=== PATIENT | female | born 1985 | race Caucasian/White ===

== ENCOUNTER 2019-09-24 17:51 | Emergency (ER) | payer OTHER ==
[2019-09-24 18:19] VITALS: BP 109/67
--- NOTE | 2019-09-24 18:34 | UC ---
FLU HPI - HPI Summary HPI Summary: 34-year-old female with flulike symptoms for 5 days. Today she has sinus congestion, postnasal drainage, tight congested cough with mild shortness of breath. She continues to have fever. - History of Current Complaint Chief Complaint: UCGeneralIllness Stated Complaint: FLU LIKE SYMPTOMS Time Seen by Provider: 09/24/19 18:04 Hx Obtained From: Patient Hx Last Menstrual Period: 08/28/19 ?: No Onset/Duration: Gradual Onset Severity Currently: Mild Severity Initially: Moderate Pain Intensity: 6 Associated Signs & Symptoms: Positive: Fever, Myalgia, Cough, Nasal Congestion, Headache - Allergy/Home Medications Allergies/Adverse Reactions: Allergies Allergy/AdvReac Type Severity Reaction Status Date / Time No Known Allergies Allergy Verified 09/24/19 18:12 Home Medications: Home Medications Amoxicillin 875 mg PO ONCE 09/24/19 [History Confirmed 09/24/19] Ibuprofen TAB* [Advil TAB*] 600 mg PO ONCE 09/24/19 [History Confirmed 09/24/19] PMH/Surg Hx/FS Hx/Imm Hx Previously Healthy: Yes - Surgical History Surgical History: Yes Surgery Procedure, Year, and Place: pilonidal cyst removal 2007. breast augmentation - Family History Known Family History: Positive: Non-Contributory - Social History Occupation: Employed Full-time Lives: With Family Alcohol Use: None Substance Use Type: None Smoking Status (MU): Never Smoked Tobacco Review of Systems All Other Systems Reviewed And Are Negative: Yes Constitutional: Positive: Fever, Chills ENT: Positive: Nasal Discharge, Sinus Congestion Respiratory: Positive: Cough - Dry nonproductive cough. Musculoskeletal: Positive: Myalgia Neurological: Positive: Headache Is Patient Immunocompromised?: No Physical Exam Triage Information Reviewed: Yes Appearance: Well-Appearing, No Pain Distress, Well-Nourished Vital Signs: Initial Vital Signs Temp 98.8 F 09/24/19 18:14 Pulse 89 09/24/19 18:14 Resp 16 09/24/19 18:14 BP 109/67 09/24/19 18:14 Pulse Ox 99 09/24/19 18:14 Vital Signs Reviewed: Yes Eyes: Positive: Conjunctiva Clear ENT: Positive: Pharynx normal - Yellow postnasal drainage, Nasal congestion - Yellow purulent nasal coryza, Nasal drainage, TMs normal, Sinus tenderness - Tenderness over the maxillary sinuses bilaterally., Uvula midline Neck: Positive: Supple, Nontender, No Lymphadenopathy Respiratory: Positive: Lungs clear, Normal breath sounds, No respiratory distress, No accessory muscle use, Rhonchi Cardiovascular: Positive: RRR, No Murmur, Pulses Normal, Brisk Capillary Refill Musculoskeletal Exam: Normal Neurological Exam: Normal Psychological Exam: Normal Skin Exam: Normal Flu Course/Dx - Course Course Of Treatment: Chest x-ray: Negative as read by myself and Dr. Hendricks. Because the patient has had flulike symptoms for 5 days I did give her the choice for flu testing however advised her that because she has no chronic illnesses and she is 5 days into it that treatment with Tamiflu is not recommended by the Centers for Disease Control. She is agreeable to not having flu testing done. I do believe the patient has a sinus infection and I am going to treat her with doxycycline for that. - Differential Dx/Diagnosis Provider Diagnosis: Sinusitis, Flu-like symptoms Discharge ED - Sign-Out/Discharge Documenting (check all that apply): Patient Departure All imaging exams completed and their final reports reviewed: No Studies - Discharge Plan Condition: Fair Disposition: HOME Prescriptions: DOXYcycline CAP(*) [DOXYcycline 100MG CAP(*)] 100 mg PO BID 10 Days #20 cap Patient Education Materials: Sinusitis (ED) Referrals: Myah Pool MD [Primary Care Provider] - Additional Instructions: Increase fluids, Tylenol every 4 hours may alternate with ibuprofen every 8 hours for pain or fever. If you use [id number] cold medicines checked to see if they contain acetaminophen and/or ibuprofen already. Follow-up with your primary care provider in 3-4 days if no improvement. No dairy products, antacids or multivitamins 2 hours before you take doxycycline or 2 hours after you take it however take it with food. - Billing Disposition and Condition Condition: FAIR Disposition: Home - Attestation Statements Provider Attestation: This patient was not seen by me. I was available for consult. Chart reviewed. FERNANDEZ
== END 2019-09-24 19:05 | disposition home or self-care (01) ==
LOC: UCCORT 17:51
DX: J32.9 Chronic sinusitis, unspecified (principal); R05 Cough; R06.02 Shortness of breath; R50.9 Fever, unspecified; J34.89 Other specified disorders of nose and nasal sinuses
CPT/HCPCS: 71046; 99212; G0463